=== PATIENT | female | born 1940 | race Hispanic/Latino ===

== ENCOUNTER 2017-04-22 10:46 | Day surgery (SDC) | payer MEDICARE ==
[~2017-04-22 10:46] MED LIST: IOPIDINE OD ONE; IOPIDINE ONE; MYDRIACYL ONE; NEOFRIN ONE
[2017-04-22] MEDS ORDERED: IOPIDINE OD ONE ×2 (11:06→12:39)
[2017-04-22] MEDS ORDERED: NEOFRIN OD ONE (11:06)
[2017-04-22] MEDS ORDERED: MYDRIACYL OD ONE (11:06)
[2017-04-22 14:00] VITALS: BP 122/76
== END 2017-04-22 12:40 | disposition home or self-care (01) ==
LOC: OR 10:46
PROVIDERS: ATTEND Specialist
DX: H26.491 Other secondary cataract, right eye (principal); K21.9 Gastro-esophageal reflux disease without esophagitis; Z98.42 Cataract extraction status, left eye; Z98.41 Cataract extraction status, right eye; Z90.49 Acquired absence of other specified parts of digestive tract

== ENCOUNTER 2017-05-13 10:32 | Day surgery (SDC) | payer MEDICARE ==
[~2017-05-13 10:32] MED LIST changes: -IOPIDINE OD ONE
[2017-05-13 11:12] VITALS: BP 136/69
[2017-05-13] MEDS ORDERED: IOPIDINE OS ONE (11:44)
[2017-05-13] MEDS ORDERED: MYDRIACYL OS ONE (11:44)
[2017-05-13] MEDS ORDERED: NEOFRIN OS ONE (11:44)
== END 2017-05-13 10:33 | disposition home or self-care (01) ==
LOC: OR 10:32
PROVIDERS: ATTEND Specialist
DX: H26.492 Other secondary cataract, left eye (principal); E78.00 Pure hypercholesterolemia, unspecified; K21.9 Gastro-esophageal reflux disease without esophagitis; G20 Parkinson's disease; Z90.49 Acquired absence of other specified parts of digestive tract